=== PATIENT | male | born 1975 | race Caucasian/White ===

== ENCOUNTER 2016-08-13 01:55 | Emergency (ER) | payer OTHER ==
[2016-08-13 02:03] VITALS: TEMP 97.5
[2016-08-13] MEDS ORDERED: NS 1,000 ML IV ONE ×2 (02:04→03:25)
--- NOTE | 2016-08-13 02:04 | EDPHY ---
H & P Stated Complaint: near syncope, jaw pain HPI/ROS: HPI CHIEF COMPLAINT: Diaphoresis, chest tightness, presyncope, lightheadedness HISTORY OF PRESENT ILLNESS: This patient very pleasant 41-year-old male significant past medical history for chronic low back pain, presents emergency room by private vehicle after he suddenly woke up around 1 o'clock or approximately an hour ago feeling very flushed and hot. He tells me went downstairs to get a glass of water where he became diaphoretic and very flushed. He felt globally weak as if he was going to pass out. Had to sit down he states that he felt very weak that he was going to actually completely have a syncopal episode. He states he noticed some left-sided jaw pain and a little bit of left-sided chest tightness he describes a 1/10. No nausea. No abdominal pain. No shortness of breath. He does tell me he had some tingling in his hands. Since arriving to the emergency room he does feel better he does still have 1/10 left-sided chest discomfort. His reports that he was diaphoretic. Denies recent illness, diarrhea or vomiting. Denies headache. Additionally also reports some focal left-sided neck pain. 1 particular area hurts when he presses on his neck. Past Medical History: Chronic low back pain Past Surgical History: No recent surgical history Social History: Denies daily use of drugs alcohol tobacco products Family History: No significant cardiac history and mom dad brother sister. ROS REVIEW OF SYSTEMS: A comprehensive 10 point review of systems is otherwise negative aside from elements mentioned in the history of present illness. Exam Constitutional appears well nontoxic, triage nursing summary reviewed, vital signs reviewed, awake/alert. Eyes normal conjunctivae and sclera, EOMI, PERRLA. HENT neck exam: No carotid bruit. No lymphadenopathy. normal inspection, atraumatic, moist mucus membranes, no epistaxis, neck supple/ no meningismus, no raccoon eyes. Respiratory clear to auscultation bilaterally, normal breath sounds, no respiratory distress, no wheezing. Cardiovascular rate normal, regular rhythm, no murmur, no edema, distal pulses normal. Gastrointestinal soft, non-tender, no rebound, no guarding, normal bowel sounds, no distension, no pulsatile mass. Genitourinary no CVA tenderness. Musculoskeletal no midline vertebral tenderness, full range of motion, no calf swelling, no tenderness of extremities, no meningismus, good pulses, neurovascularly intact. Skin pink, warm, & dry, no rash, skin atraumatic. Neurologic awake, alert and oriented x 3, AAOx3, moves all 4 extremities equally, motor intact, sensory intact, CN II-XII intact, normal cerebellar, normal vision, normal speech. Psychiatric normal mood/affect. Heme/Lymph/Immune no lymphadenopathy. Differential diagnosis includes but is not limited to: ACS, atypical chest pain , pneumothorax, pneumonia, pulmonary embolism, aortic dissection, congestive heart failure, tumor, musculoskeletal pain, esophageal pain, GERD, peptic ulcer disease, pancreatitis Medical Decision Making: Plan for this patient full radiation monitor, full-dose aspirin, IV establishment, check blood work, chest x-ray, EKG and rule out acute coronary syndrome. Re-evaluation: EKG interpretation by me on record in [employer] system. Impression time of EKG 2:07 a.m., this is sinus rhythm rate of 57 LVH is present. [place] interval 2 8. I do not appreciate acute ischemic changes specifically no ST elevation or significant ST depression. Isolated T-wave inversion in lead 3 when I compare this to his old EKG dated 08/11/2010 twenty one two thousand eleven similar morphology. LVH present. Pr interval 200. ED x-ray chest one view: Negative for acute cardiopulmonary disease. Image interpreted by myself. 0326AM: Re-evaluation this time. Patient denies having left-sided chest pain at this time. Does complain of focal left neck pain. No bruit on exam. No other neurological symptoms. Feels better after IV fluids. Given his ongoing left-sided neck pain diaphoresis chest pain feeling he is going to pass out will perform a CT angio neck to make sure does not have carotid dissection. CT scan of the neck angiogram. The results of the study are negative for acute vascular abnormality specifically no dissection. Incidentally there is 9 mm thyroid nodule right side. Follow-up ultrasound outpatient recommended.. The study was read by Dr. Hinson I viewed the images myself on the PACS system. 0404AM: Re-evaluation at this time. Updated the patient on his results of his testing is negative CT angiogram, negative troponin nonischemic EKG. Normal chest x-ray. Thyroid nodule noted. Discussed options with the patient I did recommend given his presentation of jaw pain, left-sided minor 1/10 chest pain, and reporting diaphoresis and feeling as if he is going to pass out I did recommend that he stays in observation today for cardiac evaluation including stress test serial cardiac markers and EKG. He is currently at this time thinking about this. 0439AM: Re-examination at this time after great discussion with him and his at bedside he would like to repeat an EKG repeat troponin at 7:30 a.m. this will be 6 hours after time of onset. He has not had any further chest pain or shortness of breath nausea diaphoresis or feeling lightheaded feeling he is going to pass out during the ER visit. Given that his 1st EKG and 1st troponin are negative. He is feeling much better and is low risk category chest pain is reasonable to repeat EKG repeat troponin 730 this is 6 hours from time of onset if these are normal I will allow her to go home with Cardiology follow-up. He has been given strict return precautions includes if he develops chest pain, shortness of breath, lightheadedness, syncope, nausea, diaphoresis he needs to immediately return emergency room. His and him after great discussion or fine with this plan. He declined hospital admission for serial enzyme serial EKGs stress test he would like to do that outpatient if his 2nd and EKG and troponin are normal he will follow up with Cardiology. Strict return precautions given. Follow up EKG, and Trop Pending. If Second EKG and Trop normal. Okay to d/c close Cardiology Follow up. Patient understands to call and make an appointment with cardiology. Return to Er if worsening symptoms/CP/questions or concerns. Source: Patient - Personal History Current Tetanus/Diphtheria Vaccine: Yes Current Tetanus Diphtheria and Acellular Pertussis (TDAP): Yes - Medical/Surgical History Hx Asthma: Yes Hx Chronic Respiratory Disease: No Hx Diabetes: No Hx Cardiac Disease: No Hx Renal Disease: No Hx Cirrhosis: No Hx Alcoholism: No Hx HIV/AIDS: No Hx Splenectomy or Spleen Trauma: No Other PMH: ortho surgery, migraine, asthma - Social History Smoking Status: Never smoked Constitutional: Initial Vital Signs Temperature (C) 36.4 C 08/13/16 01:59 Heart Rate 65 08/13/16 01:59 Respiratory Rate 16 08/13/16 01:59 Blood Pressure 143/93 H 08/13/16 01:59 O2 Sat (%) 96 08/13/16 01:59 O2 Delivery Mode Room Air Allergies/Adverse Reactions: No Known Allergies Allergy (Unverified 08/13/16 01:59) Home Medications: Medication Instructions Recorded Ibuprofen 08/13/16 Medical Decision Making - Diagnostics Imaging Results: Imaging Impressions Neck CTA 08/13/16 03:25 Impression: 1. Normal CT angiogram of the carotid arteries and vertebral arteries without significant stenosis or dissection. 2. Incidental 8.7 mm nonspecific nodule right thyroid gland. Recommend follow up ultrasound in six months. 3. Mild multilevel degenerative disk and degenerative joint disease in the cervical spine. Results called and discussed with Kemar Mckinnon M.D. on August 13, 2016 at 0358 hours. Measurement of carotid stenosis is based on the residual internal carotid diameter with [place] Symptomatic Carotid Endarterectomy Trial (NASCET) based stenosis levels. - Data Points Laboratory Results: Laboratory Results 08/13/16 02:10 08/13/16 02:10 Medications Given: Discontinued Medications Aspirin Buffered (Aspirin Ec) 325 mg PO EDNOW ONE Stop: 08/13/16 02:17 Last Admin: 08/13/16 02:23 Dose: 325 mg Sodium Chloride (Ns) 1,000 mls @ 0 mls/hr IV ONCE ONE PRN Reason: Wide Open Stop: 08/13/16 02:05 Last Admin: 08/13/16 02:15 Dose: 1,000 mls Sodium Chloride (Ns) 1,000 mls @ 0 mls/hr IV ONCE ONE PRN Reason: Wide Open Stop: 08/13/16 03:26 Last Admin: 08/13/16 03:29 Dose: 1,000 mls Departure - Departure Disposition: [facility] Acute Clinical Impression: Thyroid nodule Chest pain Qualifiers: Chest pain type: unspecified Qualified Code(s): R07.9 - Chest pain, unspecified Condition: Fair Instructions: Chest Pain (ED), Thyroid Nodules (ED) Additional Instructions: 1. Please return to the emergency room immediately if he develops any worsening symptoms includes chest pain, shortness of breath, syncope, lightheadedness, nausea vomiting. 2. I do recommend he follow up with cardiology. Please call their for an appointment. 3. Return immediately to emergency review of worsening symptoms questions or concerns. Referrals: EMMIE GRANT [Primary Care Provider] - As per Instructions Rafa Paulson MD [Medical Doctor] - As per Instructions
--- NOTE | 2016-08-13 02:10 | CPEKG ---
Heart Rate: 57 RR Interval: 1053 P-R Interval: 208 QRSD Interval: 94 QT Interval: 420 QTC Interval: 409 P [place]: 56 QRS [place]: 69 T Wave [place]: 26 EKG Severity - ABNORMAL ECG - EKG Impression: SINUS RHYTHM EKG Impression: LEFT VENTRICULAR HYPERTROPHY Electronically Signed By: Kemar Mckinnon 13-Aug-2016 07:04:35
[2016-08-13] MEDS ORDERED: ASPIRIN EC 325 MG TAB PO ONE (02:16)
[2016-08-13 02:21] LABS: % IMMATURE GRANULYOCYTES 0.5 % (0.0-1.1); ABSOLUTE IMMATURE GRANULOCYTES 0.05 10^3/uL (0.00-0.10); ADD DIFF? NO; ADD MORPH? NO; ADD SCAN? NO; ATYPICAL LYMPHOCYTE FLAG 10 (0-99); FRAGMENT RBC FLAG 0 (0-99); HEMOGLOBIN 15.4 g/dL (13.7-17.5); LEFT SHIFT FLG 10 (0-99); LIPEMIA HEMOLYSIS FLAG 90 (0-99); MEAN CELL HEMOGLOBIN 30.7 pg (27.9-34.1); MEAN CELL VOLUME 87.8 fL (81.5-99.8); MEAN PLATELET VOLUME 9.1 fL (8.7-11.7); PLATELET CLUMPS FLAG 0 (0-99); PLATELET COUNT 244 10^3/uL (150-400); RED BLOOD CELL COUNT 5.01 10^6/uL (4.40-6.38); RED CELL DISTRIBUTION WIDTH 12.7 % (11.5-15.2)
[2016-08-13 02:29] LABS: ALANINE AMINOTRANSFERASE 37 IU/L (21-72); ALBUMIN 4.1 g/dL (3.5-5.0); ALKALINE PHOSPHATASE 86 IU/L (38-126); ANION GAP 9 mEq/L (8-16); ASPARTATE AMINOTRANSFERASE 25 IU/L (17-59); BILIRUBIN,TOTAL 0.6 mg/dL (0.1-1.4); BILIRUBIN-CONJUGATED 0.4 mg/dL (0.0-0.5); BILIRUBIN-UNCONJUGATED 0.2 mg/dL (0.0-1.1); CALCIUM 8.9 mg/dL (8.5-10.4); CARBON DIOXIDE 25 mEq/l (22-31); CHLORIDE 107 mEq/L (97-110); CREATININE 0.9 mg/dL (0.7-1.3); GLOMERULAR FILTRATION RATE > 60; GLUCOSE 114 mg/dL (70-100); MAGNESIUM 1.9 mg/dL (1.6-2.3); POTASSIUM 3.7 mEq/L (3.5-5.2); SODIUM 141 mEq/L (134-144); TOTAL PROTEIN 7.3 g/dL (6.3-8.2)
[2016-08-13 02:30] LABS: INR 0.87 (0.83-1.16); PROTIME(PATIENT) 11.7 SEC (12.0-15.0)
[2016-08-13 02:40] LABS: CREATINE KINASE-MB FRACTION 1.19 ng/mL (0-3.19); TROPONIN I < 0.012 ng/mL (0-0.034)
[2016-08-13] MEDS ORDERED: IOPAMIDOL (ISOVUE 370) 100 ML BTL IV ONE (03:27)
[2016-08-13 07:09] VITALS: O2SAT 98
--- NOTE | 2016-08-13 07:34 | CPEKG ---
Heart Rate: 47 RR Interval: 1277 P-R Interval: 188 QRSD Interval: 92 QT Interval: 440 QTC Interval: 389 P [place]: 45 QRS [place]: 67 T Wave [place]: 23 EKG Severity - OTHERWISE NORMAL ECG - EKG Impression: SINUS BRADYCARDIA EKG Impression: ST ELEV, PROBABLE NORMAL EARLY REPOL PATTERN Electronically Signed By: Madhu López 13-Aug-2016 07:34:49
[2016-08-13 08:33] VITALS: BP 137/89; PULSE 50; RESP 12
== END 2016-08-13 08:34 | disposition home or self-care (01) ==
DX: R07.89 Other chest pain (principal); E04.1 Nontoxic single thyroid nodule; J45.909 Unspecified asthma, uncomplicated
CPT/HCPCS: Q9967